=== PATIENT | male | born 1955 | race Caucasian/White ===

== ENCOUNTER 2017-05-11 14:55 | Emergency (ER) | payer MEDICARE ==
[~2017-05-11] VITALS: Ht 180.3 cm; Wt 65.0 kg
[~2017-05-11 14:55] MED LIST: AMBIEN10 MG PO; AMBIEN5 MG PO; AMITRIPTYLIN150 MG PO; AMITRIPTYLIN75 MG PO; APTIOM400 MG PO; APTIOM800 MG PO; ASPIRIN EC325 MG PO; DENIES; DILAUDID 2MG2 MG/TA1 PO; ELAVIL OR; ELAVIL75 MG PO; FLOMAX0.4 M1 PO; HYDROCO/APAP1 TA1 PO; HYDROCO/APAP1 TA2 OR; LORTAB 10 OR; LORTAB5 PO; MORPHINE PUMP; MORPHINE SUL30 M3 OR; MORPHINE SUL30 M3 PO; MORPHINE SUL60 MG OR; NAPROSYN500 MG OR; NAPROSYN500 MG PO; NEURONTIN300 MG PO; NEURONTIN600 MG PO; NITROGLYCER0.4 MG PO; NORCO1 TA1 PO; PENICILLN VK500 MG OR; PERIDEX0.12 % MT; PROZAC20 MG PO; VALIUM5 MG OR
[2017-05-11] MEDS ORDERED: MORPHINE SUL30 M3 PO (15:33)
[2017-05-11] MEDS ORDERED: BACTRIM DS1 TAB PO (15:33)
[2017-05-11] MEDS ORDERED: FLEXERIL5 MG PO (15:34)
[2017-05-11 15:48] VITALS: BP 100/72
== END 2017-05-11 15:57 | disposition home or self-care (01) ==
LOC: ED 14:55
DX: M21.372 Foot drop, left foot (principal); M25.475 Effusion, left foot; M25.572 Pain in left ankle and joints of left foot; X50.0XXA Overexertion from strenuous movement or load, initial encounter; W10.9XXA Fall (on) (from) unspecified stairs and steps, initial encounter; Y92.009 Unspecified place in unspecified non-institutional (private) residence as the place of occurrence of the external cause

== ENCOUNTER 2017-08-22 14:34 | Emergency (ER) | payer MEDICARE ==
[~2017-08-22] VITALS: Ht 180.3 cm; Wt 60.0 kg
[~2017-08-22 14:34] MED LIST changes: +BACTRIM DS1 TAB PO; +FLEXERIL5 MG PO
[2017-08-22 17:00] VITALS: BP 123/70
== END 2017-08-22 17:04 | disposition home or self-care (01) ==
LOC: ED 14:34
DX: S32.008A Other fracture of unspecified lumbar vertebra, initial encounter for closed fracture (principal); G62.9 Polyneuropathy, unspecified; F17.210 Nicotine dependence, cigarettes, uncomplicated; W19.XXXA Unspecified fall, initial encounter

== ENCOUNTER 2017-08-28 14:18 | Emergency (ER) | payer OTHER, MEDICARE ==
[~2017-08-28] VITALS: Ht 180.3 cm; Wt 65.0 kg
[2017-08-28 15:07] LABS: HEMATOCRIT 34.6 % (39.0-50.0); HEMOGLOBIN 10.9 g/dl (14.0-18.0); IMMATURE GRANULOCYTES 0.5 % (0.0-1.0); MEAN CORPUSCULAR HGB 29.3 pG CALC (26.0-32.0); MEAN CORPUSCULAR HGB CONC 31.5 g/L CALC (32.0-36.0); NEUT# 3.81 thou/uL (1.82-7.42); RED BLOOD COUNT 3.72 mill/uL (4.70-6.10); RED CELL DISTRI WIDTH 14.2 % (11.5-15.5)
[2017-08-28 15:22] LABS: ALBUMIN 3.9 g/dL (3.2-5.0); ALKALINE PHOSPHATASE 124 u/l (38-126); ANION GAP 13 (6-22 (CALC)); BILIRUBIN, TOTAL 0.4 mg/dL (0.0-1.4); BUN 15 mg/dL (8-23); BUN/CREATININE RATIO 12 (12-20 (CALC)); CARBON DIOXIDE 30 mmol/l (22-30); CHLORIDE 102 mmol/l (95-108); CREATININE 1.2 mg/dL (0.7-1.3); GFR > 60 ML/MIN (>=60 (CALC)); GFR FOR AFR.AMER. > 60 ML/MIN (>=60 (CALC)); SGOT/AST 39 u/l (19-48); SGPT/ALT 29 u/l (11-66); SODIUM 141 mmol/l (137-146); TOTAL PROTEIN 7.4 g/dL (6.3-8.2)
[2017-08-28 15:39] LABS: URINE BILIRUBIN - DIPSTICK NEGATIVE (NEGATIVE); URINE BLOOD DIPSTICK LARGE (NEGATIVE); URINE COLOR YELLOW; URINE GLUCOSE - DIPSTICK NEGATIVE (NEGATIVE); URINE KETONE NEGATIVE (NEGATIVE); URINE LEUK ESTERASE NEGATIVE (NEGATIVE); URINE NITRITE - DIPSTICK NEGATIVE (Negative); URINE PROTEIN - DIPSTICK NEGATIVE (NEG-TRACE); URINE UROBILINOGEN - DIPSTICK 0.2 E.U./dL (0.2)
[2017-08-28 15:40] LABS: URINE CLARITY HAZY
[2017-08-28 15:44] LABS: BARBITURATES NEGATIVE (NEGATIVE); COCAINE NEGATIVE (NEGATIVE); METHADONE NEGATIVE (NEGATIVE); OXCYCODONE NEGATIVE (NEGATIVE); TETRAHYDROCANNABIONOL POSITIVE (NEGATIVE); TRICYLIC ANTIDEPRESSANTS POSITIVE (NEGATIVE)
[2017-08-28 15:48] LABS: URINE WBC 0-2 WBC/hpf (0-5)
[2017-08-28] MEDS ORDERED: ELAVIL25 MG PO (15:59)
[2017-08-28] MEDS ORDERED: AMBIEN5 MG PO (16:00)
[2017-08-28] MEDS ORDERED: PROZAC10 MG PO (16:01)
[2017-08-28 18:32] VITALS: BP 138/67
== END 2017-08-28 18:30 | disposition short-term general hospital (02) | DRG 948 ==
LOC: ED 14:18
PROVIDERS: Emergency Medicine
PROC: 0T9B70Z Drainage of Bladder with Drainage Device, Via Natural or Artificial Opening (ICD-10-PCS; principal; 2017-08-28)
DX: R41.82 Altered mental status, unspecified (principal); T42.4X5A Adverse effect of benzodiazepines, initial encounter; G62.9 Polyneuropathy, unspecified; G89.29 Other chronic pain; M54.9 Dorsalgia, unspecified; F17.210 Nicotine dependence, cigarettes, uncomplicated; Z79.891 Long term (current) use of opiate analgesic
CPT/HCPCS: J2060

== ENCOUNTER 2017-11-07 16:36 | Emergency (ER) | payer MEDICARE ==
[~2017-11-07] VITALS: Ht 180.3 cm; Wt 67.8 kg
[~2017-11-07 16:36] MED LIST changes: +ELAVIL25 MG PO; +PROZAC10 MG PO
[2017-11-07] MEDS ORDERED: CEPHALEXIN500 M1 PO (17:48)
[2017-11-07 18:00] VITALS: BP 104/64
== END 2017-11-07 18:06 | disposition home or self-care (01) ==
LOC: ED 16:36
DX: S50.812A Abrasion of left forearm, initial encounter (principal); G62.9 Polyneuropathy, unspecified; F17.210 Nicotine dependence, cigarettes, uncomplicated; W01.198A Fall on same level from slipping, tripping and stumbling with subsequent striking against other object, initial encounter; Y92.59 Other trade areas as the place of occurrence of the external cause

== ENCOUNTER 2018-01-18 19:05 | Emergency (ER) | payer MEDICARE ==
[~2018-01-18] VITALS: Ht 180.3 cm; Wt 59.0 kg
[~2018-01-18 19:05] MED LIST changes: +CEPHALEXIN500 M1 PO
[2018-01-18 20:05] VITALS: BP 130/75
== END 2018-01-18 20:05 | disposition home or self-care (01) ==
LOC: ED 19:05
DX: S40.011A Contusion of right shoulder, initial encounter (principal); G62.9 Polyneuropathy, unspecified; F17.210 Nicotine dependence, cigarettes, uncomplicated; G89.29 Other chronic pain; M54.9 Dorsalgia, unspecified; W19.XXXA Unspecified fall, initial encounter; Y92.009 Unspecified place in unspecified non-institutional (private) residence as the place of occurrence of the external cause

== ENCOUNTER 2018-08-15 11:45 | Emergency (ER) | payer MEDICARE ==
[~2018-08-15] VITALS: Ht 180.3 cm; Wt 68.2 kg
[2018-08-15] MEDS ORDERED: PERCOCET 10/31 COMBO PO (13:44)
[2018-08-15 14:32] VITALS: BP 155/80
== END 2018-08-15 14:42 | disposition home or self-care (01) ==
LOC: ED 11:45
PROC: 2W39X1Z Immobilization of Left Upper Extremity using Splint (ICD-10-PCS; principal; 2018-08-15)
DX: S42.302A Unspecified fracture of shaft of humerus, left arm, initial encounter for closed fracture (principal); M97.32XA Periprosthetic fracture around internal prosthetic left shoulder joint, initial encounter; G62.9 Polyneuropathy, unspecified; F17.200 Nicotine dependence, unspecified, uncomplicated; X58.XXXA Exposure to other specified factors, initial encounter

== ENCOUNTER 2018-09-08 16:09 | Emergency (ER) | payer MEDICARE ==
[~2018-09-08] VITALS: Ht 182.9 cm; Wt 63.6 kg
[~2018-09-08 16:09] MED LIST changes: +PERCOCET 10/31 COMBO PO
[2018-09-08 19:35] VITALS: BP 106/62
== END 2018-09-08 19:40 | disposition home or self-care (01) ==
LOC: ED 16:09
PROC: 0HQ1XZZ Repair Face Skin, External Approach (ICD-10-PCS; principal; 2018-09-08)
DX: S01.81XA Laceration without foreign body of other part of head, initial encounter (principal); S09.90XA Unspecified injury of head, initial encounter; W18.39XA Other fall on same level, initial encounter; W06.XXXA Fall from bed, initial encounter; W22.8XXA Striking against or struck by other objects, initial encounter; Y92.003 Bedroom of unspecified non-institutional (private) residence as the place of occurrence of the external cause; Z98.890 Other specified postprocedural states

== ENCOUNTER → 2018-09-09 | Outpatient (REF) | payer MEDICARE | END | disposition home or self-care (01) | LOC: DI 09:15 | PROVIDERS: ATTEND Internal Medicine Infectious Disease | PROC: 05HY33Z Insertion of Infusion Device into Upper Vein, Percutaneous Approach (ICD-10-PCS; principal; 2018-09-09) | DX: Z45.2 Encounter for adjustment and management of vascular access device (principal); T84.59XA Infection and inflammatory reaction due to other internal joint prosthesis, initial encounter ==

== ENCOUNTER 2019-04-16 06:24 | Emergency (ER) | payer MEDICARE ==
[~2019-04-16] VITALS: Ht 182.9 cm; Wt 61.3 kg
[2019-04-16] MEDS ORDERED: KEFLEX500 M1 PO (06:52)
[2019-04-16] MEDS ORDERED: DIFLUCAN100 MG PO (06:52)
[2019-04-16] MEDS ORDERED: DILAUDID4 MG PO (06:53)
[2019-04-16] MEDS ORDERED: TRAZODONE50 MG PO (06:54)
[2019-04-16] MEDS ORDERED: AMBIEN10 MG PO (06:54)
[2019-04-16] MEDS ORDERED: ROCEPHIN 1 GM1 GM IV (06:54)
[2019-04-16] MEDS ORDERED: HYZAAR1 TA2 PO (06:54)
[2019-04-16] MEDS ORDERED: NORVASC5 M1 PO (06:55)
[2019-04-16] MEDS ORDERED: PREVACID30 M1 PO (06:55)
[2019-04-16] MEDS ORDERED: METOPROLOL100 M1 PO (06:56)
[2019-04-16] MEDS ORDERED: ISOSORB MONO30 MG PO (06:56)
[2019-04-16 07:28] LABS: HEMATOCRIT 30.9 % (39.0-50.0); HEMOGLOBIN 9.9 g/dl (14.0-18.0); IMMATURE GRANULOCYTES 0.3 % (0.0-5.0); MEAN CORPUSCULAR HGB 27.6 pG CALC (26.0-32.0); NEUT# 3.57 thou/uL (1.82-7.42); RED BLOOD COUNT 3.59 mill/uL (4.70-6.10); RED CELL DISTRI WIDTH 14.3 % (11.5-15.5)
[2019-04-16 08:01] LABS: ALBUMIN 3.8 g/dL (3.2-5.0); ANION GAP 15 (6-22 (CALC)); BUN 10 mg/dL (8-23); BUN/CREATININE RATIO 12 (12-20 (CALC)); CARBON DIOXIDE 23 mmol/l (22-30); CHLORIDE 106 mmol/l (95-108); CREATININE 0.8 mg/dL (0.7-1.3); D-DIMER 1.93 mg/L (0.19-0.60); GFR > 60 ML/MIN (>=60 (CALC)); GFR FOR AFR.AMER. > 60 ML/MIN (>=60 (CALC)); POTASSIUM 3.6 mmol/l (3.5-5.1); PROTHROMBIN TIME 10.7 SECONDS (9.0-12.5); SGOT/AST 40 u/l (19-48); SODIUM 140 mmol/l (137-146); TOTAL PROTEIN 7.5 g/dL (6.3-8.2)
[2019-04-16 08:03] LABS: BILIRUBIN, TOTAL 0.2 mg/dL (0.0-1.4)
[2019-04-16 08:04] LABS: ALKALINE PHOSPHATASE 127 u/l (38-126); MEAN CELL VOLUME 86.1 fL CALC (80.0-100.0)
[2019-04-16 08:13] LABS: MYOGLOBIN 38 ng/mL (0 - 121)
[2019-04-16 09:11] LABS: URINE BILIRUBIN - DIPSTICK NEGATIVE (NEGATIVE); URINE BLOOD DIPSTICK NEGATIVE (NEGATIVE); URINE COLOR YELLOW; URINE GLUCOSE - DIPSTICK NEGATIVE (NEGATIVE); URINE KETONE NEGATIVE (NEGATIVE); URINE LEUK ESTERASE NEGATIVE (NEGATIVE); URINE NITRITE - DIPSTICK NEGATIVE (Negative); URINE PH 8.5 (4.5-8.0); URINE PROTEIN - DIPSTICK NEGATIVE (NEG-TRACE); URINE UROBILINOGEN - DIPSTICK 0.2 E.U./dL (0.2)
[2019-04-16 10:57] VITALS: BP 190/82
== END 2019-04-16 11:04 | disposition home or self-care (01) ==
LOC: ED 06:24
PROVIDERS: Family Medicine
DX: G89.18 Other acute postprocedural pain (principal); M25.512 Pain in left shoulder; R06.02 Shortness of breath; G62.9 Polyneuropathy, unspecified; F17.210 Nicotine dependence, cigarettes, uncomplicated
CPT/HCPCS: Q9967